=== PATIENT | female | born 1950 | race Caucasian/White ===

== ENCOUNTER → 2018-02-25 13:38 | Outpatient (CLI) | payer MEDICARE, OTHER, SELFPAY ==
--- NOTE | 2018-02-25 | DI.MG.S_ITS ---
BILATERAL DIGITAL SCREENING MAMMOGRAM 3D/2D WITH CAD: 02/25/2018 CLINICAL: Baseline exam. Routine screening. No prior exams were available for comparison. There are scattered fibroglandular elements in both breasts. Current study was also evaluated with a Computer Aided Detection (CAD) system. No significant masses, calcifications, or other findings are seen in either breast. IMPRESSION: NEGATIVE There is no mammographic evidence of malignancy. A 1 year screening mammogram is recommended. This exam was interpreted at Station ID: [id number]. NOTE: For mammograms, a report in lay terms will be sent to the patient. Approximately 15% of breast malignancies will not be visualized mammographically. In the management of a palpable breast mass, a negative mammogram must not discourage biopsy of a clinically suspicious lesion. Electronically Signed By: Desean ledbetter/nikole:02/25/2018 17:18:28 letter sent: Normal Exam ACR BI-RADS Category 1: Negative [id number]
== END ==
PROVIDERS: Visit Provider Nurse Practitioner Family
DX: Z12.31 Encounter for screening mammogram for malignant neoplasm of breast (principal); M85.88 Other specified disorders of bone density and structure, other site; Z78.0 Asymptomatic menopausal state
CPT/HCPCS: 77063; 77067; 77080

== ENCOUNTER → 2020-04-07 15:17 | Oncology outpatient (ONC) | payer MEDICARE, OTHER, SELFPAY ==
--- NOTE | 2019-06-08 14:55 | ONC.CONS ---
History of Present Illness - Data of Consult Patient: new to practice Consult date: 06/08/19 Requesting Physician: Marissa Loo NP Primary Care Provider: GARY Artis - Consult Narrative Reason for consult: Erythrocytosis Narrative: Aranza Erickson (preferred to be called Guillermo) is a 69 year old female. She was referred by Marissa Loo nurse practitioner for evaluation of erythrocytosis. Patient has been healthy all her life. She went in October 2018 for Annual Wellness visit. Lab tests on 11/14/2018 showed WBC 6.61, RBC 5.3, hemoglobin 16.0, hematocrit 48, and platelets 212. Repeat test on 04/01/2019 showed WBC 5.03, RBC 5.35, hemoglobin 16, hematocrit 48, platelets 251. Clinically, she reports good energy, good appetite, no chest pain, no shortness of breath, no nausea, no vomiting, no abdominal pain, no fullness of abdomen, no blood in the stool or in the urine. But there is something bothering with spots in the eyes. Her skin is dry. No problems with hot shower. She has been donating blood about one a year since . CC: Theodore Duran MD Patient reports pain?: No Home Medications and Allergies Home Medications Medication Instructions Recorded Confirmed Type Fish Oil (Fish Oil 500 MG Softgel) 500 mg PO QDAY #0 01/05/11 06/08/19 History MULTIVITAMIN (Multiple Vitamins 1 tab PO QDAY #0 01/05/11 06/08/19 History Daily) CHOLECALCIFEROL (VITAMIN D) 2,000 iu PO Q DAY #0 01/28/12 06/08/19 History aspirin 81 mg PO QDAY #0 03/26/17 06/08/19 History Medical History - Medical, Surgical, Family History Medical History: Medical History (Last Updated 06/08/19 @ 15:11 by Theodore Duran MD) Hypertension Surgical History: Surgical History (Last Updated 06/08/19 @ 15:11 by Thedoore Duran MD) History of partial hysterectomy Family History: Family History (Last Updated 06/08/19 @ 15:12 by Theodore Duran MD) Mother Heart disease Sister Diabetes mellitus - Social History Smoking Status: Never smoker Substance Use Type: does not use Alcohol Intake: never Review of Systems All systems PM: reviewed and no additional remarkable complaints except as stated Exam Vital signs: Last Vital Signs Temp 97.2 F L 06/08/19 15:05 Pulse 63 06/08/19 15:05 Resp 16 06/08/19 15:05 BP 144/91 H 06/08/19 15:05 Pulse Ox 98 06/08/19 15:05 ECOG 1 Narrative: Gen: WDWN, NAD, pleasant and cooperative. HEENT: NCAT, EOMI, PERRLA, anicteric sclera. Neck: Supple, No palpable thyromegaly or lymphadenopathy. Respiratory: CTAB, no wheezes audible. No JVD Cardiovascular: RRR, S1 and S2 normal, no M/G/R. Abdomen: Soft, NTND, BS normal, no palpable organomegaly Extremities: No LE pitting edema. Lymphatic: no palpable lymph nodes in the neck, axillae, or groins. Neurological: AOx3, CN II-XII grossly intact. No focal motor or sensory deficit. Psychiatric: Normal affect. Results - Labs Pending Assessment and Plan (1) Polycythemia Overview: Mild erythrocytosis of unknown etiology. Asymptomatic Assessment: Talked with Guillermo about potential differential diagnosis of polycythemia. I talked about polycythemia vera, I talked about iron overload, I also talked about possible secondary erythrocytosis as a result smoking, COPD, or sleep apnea etc. Clinically patient does not have any history to suggest COPD or sleep apnea. I will proceed with screening laboratory first. Plan: CBC, CMP Iron profile, Ferritin Jak2 V617F cascade with reflex RTC in one month
[2019-06-08 15:05] VITALS: BP 144/91; PULSE 63; RESP 16; TEMP 36.2; O2SAT 98
[2019-06-08 17:19] LABS: Add Manual Diff / Slide Review NO; Basophils Absolute Auto 100 /uL (0-100); Basophils Percent Auto 1.4 % (0-2); Eosinophils Absolute Auto 300 /uL (0-450); Eosinophils Percent Auto 5.8 % (2-4); Hematocrit 44.3 % (36-46); Hemoglobin 15.2 g/dL (12.0-16.0); Lymphocytes Absolute Auto 1700 /uL (1100-4500); Lymphocytes Percent Auto 31.3 % (25-40); Mean Corpuscular HGB Conc 34.2 % (30-36); Mean Corpuscular Hemoglobin 30.5 PG (26-34); Mean Corpuscular Volume 89.1 fL (80-100); Monocytes Absolute Auto 600 /uL (0-900); Monocytes Percent Auto 11.2 % (3-14); Neutrophils Absolute Auto 2700 /uL (1500-7000); Neutrophils Percent Auto 50.3 % (50-75); Platelet Count 238 X10^3/uL (150-400); Red Blood Cell Count 4.97 X10^6/uL (4.0-5.2); Red Cell Distribution Width 13.5 % (11.6-14.8); White Blood Cell Count 5.4 X10^3/uL (4.5-11.0)
[2019-06-08 17:38] LABS: HEMOLYSIS < 15 (0-50); Iron 69 ug/dL (37-170)
[2019-06-08 17:40] LABS: Alanine Aminotransferase 33 IU/L (<35); Albumin 4.3 g/dL (3.5-5.0); Albumin Globulin Ratio 1.3 (1.0-2.8); Alkaline Phosphatase 124 U/L (38-126); Aspartate Aminotransferase 47 IU/L (14-36); BUN Creatinine Ratio 18.8 (6-22); Bilirubin Total 0.5 mg/dL (0.2-1.3); Blood Urea Nitrogen 15 mg/dL (7-17); Calcium 9.7 mg/dL (8.4-10.2); Carbon Dioxide 31 mmol/L (22-32); Chloride 102 mmol/L (98-107); Estimated Glomerular Filt Rate > 60.0 mL/min (>60); Globulin 3.3 g/dL (1.7-4.1); Glucose 91 mg/dL (80-110); HEMOLYSIS < 15 (0-50); Potassium 4.4 mmol/L (3.4-5.1); Sodium 141 mmol/L (137-145); Total Protein 7.6 g/dL (6.3-8.2)
[2019-06-08 17:50] LABS: Percent Iron Saturation 21 % (15-50); Total Iron Binding Capacity 334 ug/dL (265-497); Transferrin 278 mg/dL (206-381)
[2019-06-08 18:14] LABS: Ferritin 34.2 ng/mL (11.1-264)
[2019-06-13 20:23] LABS: CALR Exon 9 Mutation NOT DETECTED (NOT DETECTED); CSF3R Exon 14/17 Mutation NOT DETECTED (NOT DETECTED); Clinical Indication D75.1; JAK2 Exon 12 Mutation NOT DETECTED (NOT DETECTED); JAK2 V617F NOT DETECTED (NOT DETECTED); MPL Exon 10 Mutation NOT DETECTED (NOT DETECTED); Specimen Source WHOLE BLOOD EDTA
--- NOTE | 2019-07-13 14:26 | ONC.PN ---
PN -Subjective Interval history: ID/CC: 69 year old female with erythrocytosis here to review the lab results History of Present Illness: Aranza Erickson (preferred to be called Guillermo) is a 69 year old female. She was referred by Marissa Loo nurse practitioner for evaluation of erythrocytosis. Patient has been healthy all her life. She went in October 2018 for Annual Wellness visit. Lab tests on 11/14/2018 showed WBC 6.61, RBC 5.3, hemoglobin 16.0, hematocrit 48, and platelets 212. Repeat test on 04/01/2019 showed WBC 5.03, RBC 5.35, hemoglobin 16, hematocrit 48, platelets 251. Interim Events: I saw the patient on 06/08/2019. I ordered repeat CBC that showed H/H 15.2/44.3. I also ordered [id number] mutation with flex tests. She came here today to review the results. Clinically, she reports good energy, good appetite, no chest pain, no shortness of breath, no nausea, no vomiting, no abdominal pain, no fullness of abdomen, no blood in the stool or in the urine. No problems with hot shower. Of note, she has been donating blood about one a year since . - Additional ROS All systems PM: reviewed and no additional remarkable complaints except as stated Home Medications and Allergies Home Medications Medication Instructions Recorded Confirmed Type Fish Oil (Fish Oil 500 MG Softgel) 500 mg PO QDAY #0 01/05/11 06/08/19 History MULTIVITAMIN (Multiple Vitamins 1 tab PO QDAY #0 01/05/11 06/08/19 History Daily) CHOLECALCIFEROL (VITAMIN D) 2,000 iu PO Q DAY #0 01/28/12 06/08/19 History aspirin 81 mg PO QDAY #0 03/26/17 06/08/19 History Exam Vital signs: Last Vital Signs Temp 97.4 F L 07/13/19 14:46 Pulse 65 07/13/19 14:46 Resp 16 07/13/19 14:46 BP 144/80 H 07/13/19 14:46 Pulse Ox 93 07/13/19 14:46 ECOG 1 Narrative: Gen: WDWN, NAD, pleasant and cooperative. HEENT: NCAT, EOMI, PERRLA, anicteric sclera. Neck: Supple, No palpable thyromegaly or lymphadenopathy. Respiratory: CTAB, no wheezes audible. No JVD Cardiovascular: RRR, S1 and S2 normal, no M/G/R. Abdomen: Soft, NTND, BS normal, no palpable organomegaly Extremities: No LE pitting edema. Lymphatic: no palpable lymph nodes in the neck, axillae, or groins. Neurological: AOx3, CN II-XII grossly intact. No focal motor or sensory deficit. Psychiatric: Normal affect. Results - Labs Laboratory Last Values WBC 5.4 X10^3/uL (4.5-11.0) 06/08/19 15:49 RBC 4.97 X10^6/uL (4.0-5.2) 06/08/19 15:49 Hgb 15.2 g/dL (12.0-16.0) 06/08/19 15:49 Hct 44.3 % (36-46) 06/08/19 15:49 MCV 89.1 fL (80-100) 06/08/19 15:49 MCH 30.5 PG (26-34) 06/08/19 15:49 MCHC 34.2 % (30-36) 06/08/19 15:49 RDW 13.5 % (11.6-14.8) 06/08/19 15:49 Plt Count 238 X10^3/uL (150-400) 06/08/19 15:49 Neut % (Auto) 50.3 % (50-75) 06/08/19 15:49 Lymph % (Auto) 31.3 % (25-40) 06/08/19 15:49 [place] % (Auto) 11.2 % (3-14) 06/08/19 15:49 Eos % (Auto) 5.8 % (2-4) H 06/08/19 15:49 Baso % (Auto) 1.4 % (0-2) 06/08/19 15:49 Neut # (Auto) 2700 /uL (7414-2489) 06/08/19 15:49 Lymph # (Auto) 1700 /uL (1621-4842) 06/08/19 15:49 [place] # (Auto) 600 /uL (0-900) 06/08/19 15:49 Eos # (Auto) 300 /uL (0-450) 06/08/19 15:49 Baso # (Auto) 100 /uL (0-100) 06/08/19 15:49 Sodium 141 mmol/L (137-145) 06/08/19 15:49 Potassium 4.4 mmol/L (3.4-5.1) 06/08/19 15:49 Chloride 102 mmol/L (98-107) 06/08/19 15:49 Carbon Dioxide 31 mmol/L (22-32) 06/08/19 15:49 BUN 15 mg/dL (7-17) 06/08/19 15:49 Creatinine 0.80 mg/dL (0.52-1.04) 06/08/19 15:49 Estimated GFR > 60.0 mL/min (>60) 06/08/19 15:49 BUN/Creatinine Ratio 18.8 (6-22) 06/08/19 15:49 Glucose 91 mg/dL (80-110) 06/08/19 15:49 Calcium 9.7 mg/dL (8.4-10.2) 06/08/19 15:49 Iron 69 ug/dL (37-170) 06/08/19 15:49 TIBC 334 ug/dL (265-497) 06/08/19 15:49 % Saturation 21 % (15-50) 06/08/19 15:49 Transferrin 278 mg/dL (206-381) 06/08/19 15:49 Ferritin 34.2 ng/mL (11.1-264) 06/08/19 15:49 Total Bilirubin 0.5 mg/dL (0.2-1.3) 06/08/19 15:49 AST 47 IU/L (14-36) H 06/08/19 15:49 ALT 33 IU/L (<35) 06/08/19 15:49 Alkaline Phosphatase 124 U/L (38-126) 06/08/19 15:49 Total Protein 7.6 g/dL (6.3-8.2) 06/08/19 15:49 Albumin 4.3 g/dL (3.5-5.0) 06/08/19 15:49 Globulin 3.3 g/dL (1.7-4.1) 06/08/19 15:49 Albumin/Globulin Ratio 1.3 (1.0-2.8) 06/08/19 15:49 Sample Type D75.1 06/08/19 15:49 BM JAK2 V617F Intrp/Rpt See note 06/08/19 15:49 CSF3R Ex 14 & 17 Mut Det Not detected (NOT DETECTED) 06/08/19 15:49 JAK2 V617F Specimen Whole blood edta 06/08/19 15:49 JAK2 V617F Not detected (NOT DETECTED) 06/08/19 15:49 JAK2 Exon 12 Mutation Not detected (NOT DETECTED) 06/08/19 15:49 JAK2 Exon 12 Comment [id number] 06/08/19 15:49 JAK2 V617F Comment See note 06/08/19 15:49 Calreticulin Exon 9 Mut Not detected (NOT DETECTED) 06/08/19 15:49 MPL Exon 10 Mutation Not detected (NOT DETECTED) 06/08/19 15:49 Assessment and Plan (1) Polycythemia Overview: 69 year odl with mild erythrocytosis of unknown etiology. Asymptomatic Assessment: I reviewed the tests results with the patient. Patient's repeat hemoglobin and hematocrit level were within the normal range. In addition [id number] cascade with reflex study showed no mutations were identified in codon 617, or exon 12 of JAK2, or exon 9 of CALR, or exon 10 (codons 505 and 515) of MPL or exons 14 and 17 of CSF3R. I talked with her that given the above tests results, I think it is very unlikely she has any abnormal hematological problems. I recommended that we continue active surveillance. Plan: RTC in 6 months, CBC, CMP
[2019-07-13 14:46] VITALS: BP 144/80; PULSE 65; RESP 16; TEMP 36.3; O2SAT 93
--- NOTE | 2019-07-13 14:56 | ONC.SCHED ---
Patient will call to schedule f/u
[2020-04-07 15:43] LABS: Add Manual Diff / Slide Review NO; Basophils Absolute Auto 100 /uL (0-100); Basophils Percent Auto 1.3 % (0-2); Eosinophils Absolute Auto 300 /uL (0-450); Eosinophils Percent Auto 4.7 % (2-4); Hematocrit 46.3 % (36-46); Hemoglobin 15.7 g/dL (12.0-16.0); Lymphocytes Absolute Auto 2000 /uL (1100-4500); Mean Corpuscular HGB Conc 33.9 % (30-36); Mean Corpuscular Hemoglobin 30.4 PG (26-34); Mean Corpuscular Volume 89.8 fL (80-100); Monocytes Absolute Auto 500 /uL (0-900); Monocytes Percent Auto 9.5 % (3-14); Neutrophils Absolute Auto 2700 /uL (1500-7000); Neutrophils Percent Auto 48.5 % (50-75); Platelet Count 246 X10^3/uL (150-400); Red Blood Cell Count 5.15 X10^6/uL (4.0-5.2); Red Cell Distribution Width 12.9 % (11.6-14.8); White Blood Cell Count 5.6 X10^3/uL (4.5-11.0)
[2020-04-07 15:57] LABS: Alanine Aminotransferase 27 IU/L (<35); Albumin 4.3 g/dL (3.5-5.0); Albumin Globulin Ratio 1.1 (1.0-2.8); Alkaline Phosphatase 106 U/L (38-126); Aspartate Aminotransferase 39 IU/L (14-36); BUN Creatinine Ratio 16.5 (6-22); Bilirubin Total 0.5 mg/dL (0.2-1.3); Blood Urea Nitrogen 14 mg/dL (7-17); Calcium 9.5 mg/dL (8.4-10.2); Carbon Dioxide 31 mmol/L (22-32); Chloride 103 mmol/L (98-107); Estimated Glomerular Filt Rate > 60.0 mL/min (>60); Globulin 3.8 g/dL (1.7-4.1); Glucose 110 mg/dL (80-110); HEMOLYSIS < 15 (0-50); Sodium 140 mmol/L (137-145); Total Protein 8.1 g/dL (6.3-8.2)
[2020-04-07 16:11] LABS: HEMOLYSIS < 15 (0-50); Iron 117 ug/dL (37-170)
[2020-04-07 16:22] LABS: Percent Iron Saturation 35 % (15-50); Total Iron Binding Capacity 331 ug/dL (265-497); Transferrin 264 mg/dL (206-381)
[2020-04-07 16:32] LABS: Ferritin 57 ng/mL (11-264)
--- NOTE | 2020-06-08 14:27 | ONC.MSW ---
Note: This patient is overdue for f/u visit.
== END ==
PROVIDERS: PCP Nurse Practitioner; Visit Provider Internal Medicine Hematology & Oncology
DX: D75.1 Secondary polycythemia (principal); R79.89 Other specified abnormal findings of blood chemistry
CPT/HCPCS: 36415; 80053; 82728; 83540; 83550; 85025; 99204; 99214

== ENCOUNTER → 2024-07-21 | Outpatient (CLI) | payer MEDICARE, OTHER, SELFPAY ==
--- NOTE | 2024-07-21 14:38 | DI.RAD.S_ITS ---
PROCEDURE: XR DEXA AXIAL SKELETON INDICATIONS: OSTEOPOROSIS SCREENING COMPARISON: [facility], CR, XR DEXA AXIAL SKELETON, 02/25/2018, 14:21. FINDINGS: Lumbar Spine: Bone mineral density 0.880 g/cm2, T score -1.5, osteopenia, change from previous-7.8%. Statistical significance of bone mineral density change cannot be determined due to dissimilar scan types or analysis method. Left Femoral Neck: Bone mineral density 0.659 g/cm2, T score -1.7, osteopenia. Left Hip: Bone mineral density 0.755 g/cm2, T score -1.5, osteopenia, change from previous-15%. Statistical significance of bone mineral density change cannot be determined due to dissimilar scan types or analysis method.. Fracture Risk Calculation (when applicable): 10-year fracture risk of a major osteoporotic fracture 11 percent and of a hip fracture 2.0 percent. (T score greater or equal to -1.0 to: NORMAL) (T score from -1.1 to -2.4: OSTEOPENIA) (T score less than or equal to -2.5: OSTEOPOROSIS) IMPRESSION: Osteopenia elevates the patient's 10 year fracture risk as described. Decrease in lumbar spine left hip bone mineral density since the prior study. Statistical significance of bone mineral density change cannot be determined due to dissimilar scan types or analysis method. Follow-up guidelines as follows: Osteoporosis: Consider a repeat DEXA and Vertebral Fracture Assessment (VFA) exam in 2 years or sooner if medically necessary, to reassess this patient's status. Osteopenia: Consider a repeat DEXA in 2-3 years to reassess this patient's status, or if there is a new clinical indication. Normal: Consider a repeat DEXA in 5 years or sooner, or if there is a new clinical indication. All treatment decisions require clinical judgment and consideration of individual patient factors, including patient preferences, comorbidities, previous drug use, risk factors not captured in the FRAX model (e.g., frailty, falls, vitamin D deficiency, increased bone turnover, interval significant decline in bone density ) and possible under- or over-estimation of fracture risk by FRAX. In addition, the NOF Guide recommends that FDA-approved medical therapies be considered in postmenopausal women and men age >= 50 years with a: * Hip or vertebral (clinical or morphometric) fracture * T-score of <=-2.5 at the spine or hip * Ten-year fracture probability by FRAX of >= 3% for hip fracture or >=20% for major osteoporotic fracture. Dictated by: Noemi Morales M.D. on 07/21/2024 at 18:40 Approved by: Noemi Morales M.D. on 07/21/2024 at 18:41
--- NOTE | 2024-07-21 14:38 | DI.MG.S_ITS ---
BILATERAL DIGITAL SCREENING MAMMOGRAM 3D/2D WITH CAD: 07/21/2024 CLINICAL: Routine screening. Family history of breast cancer. Comparison is made to exam dated: 02/25/2018 mammogram - [facility]. There are scattered areas of fibroglandular density (category b / 25%-50% glandular tissue). Current study was also evaluated with a Computer Aided Detection (CAD) system. No significant masses, calcifications, or other findings are seen in either breast. There has been no significant interval change. IMPRESSION: NEGATIVE There is no mammographic evidence of malignancy. A 1 year screening mammogram is recommended. Based on the Tyrer Cuzick model (a risk assessment model) the patient's lifetime risk is 3.0% and her 10 year risk is 2.2%. According to the ACR, ACS, and NCCN guidelines, an annual breast MRI exam along with mammogram is recommended if the patient's lifetime risk is 20% or greater. This exam was interpreted at Station ID: [id number]. NOTE: For mammograms, a report in lay terms will be sent to the patient. Approximately 15% of breast malignancies will not be visualized mammographically. In the management of a palpable breast mass, a negative mammogram must not discourage biopsy of a clinically suspicious lesion. Electronically Signed By: Lucien pedro/nikole:07/22/2024 09:48:19 letter sent: Normal Exam ACR BI-RADS Category 1: Negative
== END ==
LOC: RAD 14:38
PROVIDERS: PCP Family Medicine; Referring Provider Family Medicine; Visit Provider Family Medicine
DX: Z12.31 Encounter for screening mammogram for malignant neoplasm of breast (principal); Z80.3 Family history of malignant neoplasm of breast; N95.9 Unspecified menopausal and perimenopausal disorder; M85.89 Other specified disorders of bone density and structure, multiple sites
CPT/HCPCS: 77063; 77067; 77080